=== PATIENT | male | born 1955 | race Caucasian/White ===

== ENCOUNTER → 2016-10-23 | Outpatient (CLI) | payer BC, OTHER | LOC: LAB 15:31 | PROVIDERS: ATTEND Urology | DX: N40.1 Benign prostatic hyperplasia with lower urinary tract symptoms (principal) | CPT/HCPCS: 36415; 84153 ==

== ENCOUNTER → 2016-11-14 | Outpatient (CLI) | payer BC, OTHER ==
--- NOTE | 2016-11-14 11:16 | DI ---
PA /LATERAL CHEST X-RAY, 11/14/2016 9:55 AM : Clinical History: Asthma. Previous Exam: 10/15/2015. There is no acute soft tissue or bony abnormality. Heart size is normal. Lungs are clear. Mediastinal structures are normal. There are no pulmonary nodules. Reading: Normal chest x-ray. There has been no interval change.
== END ==
LOC: RAD 09:49
PROVIDERS: ATTEND Physician Assistant Medical
DX: J45.909 Unspecified asthma, uncomplicated (principal)
CPT/HCPCS: 71020